=== PATIENT | male | born 1995 | race Caucasian/White ===

== ENCOUNTER 2023-10-30 06:43 | Day surgery (SDC) | payer MEDICARE, MEDICAID, SELFPAY ==
[2023-10-30] VITALS (24 sets, daily range): BP systolic 101–146; BP diastolic 68–94; PULSE 72–103; RESP 14–18; TEMP 36.2–36.8; O2SAT 90–98; BMI 29.2
[2023-10-30] MEDS: midazolam 2 mg/mL SYRUP PO (07:57)
--- NOTE | 2023-10-30 08:49 | P.HP_ITS ---
Providers/Chief Complaint Admitting Physician: Dr. Peck Chief Complaint: G404.19 History of Present Illness Ignacio Joseph is a 28 year old male with mental disability and seizure disorder who was referred to our service for vagal nerve stimulator generator exchange with current device near its end-of-life expectancy. This device was originally placed in approximately [address] Gavin. Mr. Joseph resides near [place], [place] and presents with his father who is his legal guardian. Medical history was obtained from conversation with his father. Pertinent history includes mastoiditis as a child which required mastoid surgery as well as a substantial complex facial fracture recently as a result of a seizure and resulting fall. He is noncommunicative with me. Review of Systems General: Reports: ROS unobtainable due to mental status Narrative: No immediate medical concerns from his father other than concerns that his seizures have now become more profound despite the fact that his VNS generator is not completely depleted. He received neurological care in [place] By Dr. Mcclelland. No reported seizure threshold changes related to antibiotic administration Medications/Allergies Home Medications Medication Instructions Recorded Confirmed Last Taken Type aripiprazole 15 mg tablet 15 mg PO BID 10/29/23 10/29/23 10/29/23 History atorvastatin 20 mg tablet 20 mg PO DAILY 10/29/23 10/30/23 10/30/23 History benztropine 0.5 mg tablet 0.5 mg PO BID 10/29/23 10/30/23 10/30/23 History benztropine 1 mg tablet 1 mg PO BID 10/29/23 10/30/23 10/30/23 History buspirone 10 mg tablet 10 mg PO TID 10/29/23 10/30/23 10/30/23 History clobazam 20 mg tablet 20 mg PO TID 10/29/23 10/30/23 10/30/23 History clonidine HCl 0.1 mg tablet 0.1 mg PO TID 10/29/23 10/30/23 10/30/23 History eslicarbazepine 400 mg tablet 400 mg PO DAILY 10/29/23 10/29/23 10/29/23 History (Aptiom) eslicarbazepine 800 mg tablet 800 mg PO DAILY 10/29/23 10/29/23 10/29/23 History (Aptiom) ketoconazole 2 % shampoo 1 applic topical DAILY 10/29/23 10/29/23 10/29/23 History mirtazapine 30 mg tablet 30 mg PO DAILY 10/29/23 10/29/23 10/29/23 History multivitamin 1 tab PO DAILY 10/29/23 10/30/23 10/30/23 History paliperidone palmitate 156 mg/mL 156 mg IM DIRECTED 10/29/23 10/29/23 09/23/23 History intramuscular syringe (Invega Sustenna) polyethylene glycol 3350 17 4 g PO DAILY 10/29/23 10/29/23 10/29/23 History gram/dose oral powder (Miralax) risperidone 0.5 mg tablet 0.5 mg PO QID 10/29/23 10/30/23 10/30/23 History risperidone 1 mg tablet 1 mg PO QID 10/29/23 10/30/23 10/30/23 History vitamin E 100 mg PO DAILY 10/29/23 10/30/23 10/30/23 History Allergies Allergy/AdvReac Type Severity Reaction Status Date / Time No Known Allergies Allergy Verified 10/29/23 14:44 Vitals/I&O/Wt Last Vital Signs Temp 97.1 F L 10/30/23 07:18 Pulse 103 H 10/30/23 07:18 Resp 18 10/30/23 07:18 BP 146/94 10/30/23 07:18 Pulse Ox 96 10/30/23 07:18 O2 Del Method Room Air 10/30/23 07:19 Weight last 48 hrs Weight 216 lb Physical Exam Const: COMMON NORMALS: no acute distress HENMT: OTHER: Laceration across bridge of nose scar across forehead related to recent fall following seizure with facial fractures Eye: COMMON NORMALS: EOMs intact bilaterally Neck/C-Spine: COMMON NORMALS: full ROM and no lymphadenopathy Chest: COMMONS NORMALS: normal inspection of the chest OTHER: VNS generator easily palpable in left subclavicular region Resp: COMMON NORMALS: normal respiratory effort and clear to auscultation bilaterally Cardio: COMMON NORMALS: regular rate, regular rhythm and S1 normal heart sound present GI: COMMON NORMALS: Normal to inspection, nondistended, normoactive bowel sounds present Extremity: COMMON NORMALS: no clubbing, cyanosis or edema Neuro: COMMON NORMALS: moves all extremities, no focal motor deficits and no sensory deficits noted A&P Assessment and plan (1) Battery end of life of vagus nerve stimulator: VNS generator near end of service. We will plan for generator exchange. Further neurological management will be through medical services in [place] under direction of his neurologist, Dr. Mcclelland Details and risks of procedure were Discussed with Mr. Joseph's father who is legal guardian. Risk for infection related to manipulation of the incision site was carefully discussed and his father stated this might be a concern. Risk for lead fracture need for other revisions or possible replacement of the system was also frankly discussed. He stated understanding. Appropriate consent was provided for review and signature. Attestations Medical Necessity Statement*: VNS generator near end of service Coding Level of Care Code Acute Code for Chg Fwd Diagnoses Battery end of life of vagus nerve stimulator Z45.42
--- NOTE | 2023-10-30 08:51 | ANES.PREANE2 ---
Pre-Anesthetic Assessment Height/Weight: Height 1.83 m Weight 97.976 kg Temp Pulse Resp BP Pulse Ox O2 Del Method 97.1 F L 103 H 18 146/94 96 Room Air 10/30/23 07:18 10/30/23 07:18 10/30/23 07:18 10/30/23 07:18 10/30/23 07:18 10/30/23 07:19 Preop Diagnosis: Vagal nerve stimulator generator end of service Operation Date: 10/30/23 08:35 Proposed Procedures p VNS Generator Exchange 11233,G402.19,G404.19(Not Applicable) - Len Peck MD Familial anesthetic complications: None Was Beta Nicolle taken within 24 hours: N/A Was Clonidine taken within 24 hours: N/A Last intake: Intake Last Liquid Date 10/29/23 Last Liquid Time 19:00 Last Solid Date 10/29/23 Last Solid Time 19:00 Social No alcohol and No tobacco Exam alert, oriented x 3, clear to auscultation bilaterally and regular rate & rhythm Airway Mallampati: Class IV Dentition: chipped Neuropsych Seizure autism Anesthetic Plan ASA status: 2 Anesthesia: General Risk of > 500 ml blood loss (7ml/kg in children): No Medications/Allergies Home Medications Medication Instructions Recorded Confirmed Last Taken Type aripiprazole 15 mg tablet 15 mg PO BID 10/29/23 10/29/23 10/29/23 History atorvastatin 20 mg tablet 20 mg PO DAILY 10/29/23 10/30/23 10/30/23 History benztropine 0.5 mg tablet 0.5 mg PO BID 10/29/23 10/30/23 10/30/23 History benztropine 1 mg tablet 1 mg PO BID 10/29/23 10/30/23 10/30/23 History buspirone 10 mg tablet 10 mg PO TID 10/29/23 10/30/23 10/30/23 History clobazam 20 mg tablet 20 mg PO TID 10/29/23 10/30/23 10/30/23 History clonidine HCl 0.1 mg tablet 0.1 mg PO TID 10/29/23 10/30/23 10/30/23 History eslicarbazepine 400 mg tablet 400 mg PO DAILY 10/29/23 10/29/23 10/29/23 History (Aptiom) eslicarbazepine 800 mg tablet 800 mg PO DAILY 10/29/23 10/29/23 10/29/23 History (Aptiom) ketoconazole 2 % shampoo 1 applic topical DAILY 10/29/23 10/29/23 10/29/23 History mirtazapine 30 mg tablet 30 mg PO DAILY 10/29/23 10/29/23 10/29/23 History multivitamin 1 tab PO DAILY 10/29/23 10/30/23 10/30/23 History paliperidone palmitate 156 mg/mL 156 mg IM DIRECTED 10/29/23 10/29/23 09/23/23 History intramuscular syringe (Invega Sustenna) polyethylene glycol 3350 17 4 g PO DAILY 10/29/23 10/29/23 10/29/23 History gram/dose oral powder (Miralax) risperidone 0.5 mg tablet 0.5 mg PO QID 10/29/23 10/30/23 10/30/23 History risperidone 1 mg tablet 1 mg PO QID 10/29/23 10/30/23 10/30/23 History vitamin E 100 mg PO DAILY 10/29/23 10/30/23 10/30/23 History Allergies Allergy/AdvReac Type Severity Reaction Status Date / Time No Known Allergies Allergy Verified 10/29/23 14:44 Data Anesthesia Cardiac Studies: No Data to Display
[2023-10-30] MEDS: ceFAZolin 2,000 MG in sodium chloride 0.9% (plus) 50 ML 100 MG IV (09:27)
[2023-10-30] MEDS: ceFAZolin 1,000 mg SDV 1000 MG IRRIGATION (09:46)
[2023-10-30] MEDS: lidocaine 2% INJ 20 mL INJECTION (10:13)
--- NOTE | 2023-10-30 10:52 | PM.OP ---
Operative Report Date of procedure: October 30, 2023 Pre-op diagnosis: Vagal nerve stimulator generator end of service Post-op diagnosis: same Procedure done: Vagal nerve stimulator generator exchange Implants: Sentiva vagal nerve stimulator generator Specimens removed/disposition: Depleted vagal nerve stimulator generator Pathology: none sent Surgeon: Len Peck MD Anesthesia: MAC and Local Condition: stable Disposition: PACU Brief History: Mr. Joseph is a 28-year-old mentally challenged gentleman with seizure disorder with current vagal nerve stimulator generator near end of service. He resides near [place], [place]. Therefore, due to the long travel, he presents today for a his initial evaluation and plan for generator exchange. His neurologist is Tulio Cotton M.D. Details and risk of generator exchange were carefully discussed with his father who is his legal guardian. All questions were answered. Proper consents were reviewed and signed. Procedure: Mr. Joseph was taken to the operating room theater and Positioned on the OR table over protective padding. He underwent IV conscious sedation with anesthesia monitoring. Her entire left chest was sterilely prepped and draped. Appropriate timeout was completed and confirmed. 1% lidocaine was infiltrated at the area of the prior incision for device implantation. #15 scalpel blade was utilized to incise the skin down to the subcutaneous tissues. Careful dissection was then performed utilizing scalpel, Metzenbaum scissors, and cautery if required to reach the pseudocapsule. Care was taken to identify the course of the VNS wire. The pseudocapsule was then opened utilizing #15 scalpel blade exposing the generator which was subsequently delivered. Antibiotic soaked gauze was placed in the wound. Setscrew was released to remove the VNS wire and the old generator was removed from the field. The new generator was then connected to the VNS wire and the setscrew was secured with good contact confirmed with axial traction. Wound was carefully irrigated with antibiotic solution. Hemostasis confirmed. The device was then placed back into the pseudocapsule pocket. On the table interrogation was then performed with appropriate parameters confirmed. Once completed, the incision was then closed with 2 layers of 3-0 Vicryl suture. Skin was reapproximated in a subcuticular manner with 4-0 Monocryl suture. Dermal glue was then applied followed by sterile dressing and pressure dressing. Procedure was well-tolerated and Mr. Joseph was awakened from IV conscious sedation and then transferred to Outpatient Surgery department in stable condition. Sentiva Model: #1000 Serial # [id number] Output: 1.75 mA Frequency 20 Hz Pulse width 250 On time: 30 seconds Off time: 5 minutes Duty cycle: 10% Heart rate detection: 3 Heart rate threshold: 30% Low heart rate threshold: 40 bpm Prone detection: Enabled Lead impedance: 2895 ohms
--- NOTE | 2023-10-30 12:10 | PC.NURSE ---
SOLAR ELECTRIC/PHOTOVOLTAIC INSTALLER AT BEDSIDE, PT AROUSED ENOUGH TO REMOVE ORAL AIRWAY AT APPROX 1120. PT ON NASAL CANNULA WITH OXYGEN SATURATIONS MAINTAINING >95%. VSS, PT UNABLE TO FOLLOW COMMANDS. SPOKE WITH ANESTHESIOLOGIST- OK TO TRANSITION TO PHASE II UNTIL PT IS AWAKE AND FOLLOWING COMMANDS. REPORT GIVEN TO RN IN OPS.
--- NOTE | 2023-10-30 13:30 | ANE.PACU2 ---
Inpatient post-anesthesia follow up: Airway intact: Yes Vital signs: Temperature 98.0 F Pulse Rate 74 Respiratory Rate 17 Blood Pressure 104/73 Pulse Oximetry 97 Oxygen Delivery Me thod Nasal Cannula Oxygen Flow Rate 2 Fraction of Inspir ed Oxygen Hydration adequate: Yes Nausea and vomiting: No Pain level: 1 Mental status: Baseline
== END 2023-10-30 13:30 | disposition home or self-care (01) ==
PROVIDERS: Visit Provider Thoracic Surgery (Cardiothoracic Vascular Surgery)
PROC: (CPT 61885; principal; 2023-10-30 08:25)
DX: Z45.42 Encounter for adjustment and management of neurostimulator (principal)
CPT/HCPCS: 61885; C1767; J0330; J0690; J1100; J2250; J2371; J2405; J2704; J3010; J3490